=== PATIENT | female | born 1990 | race Two or more races ===

== ENCOUNTER 2021-06-04 06:32 | Inpatient (IN) | payer SELFPAY ==
[~2021-06-04] VITALS: Ht 154.9 cm; Wt 102.0 kg
[2021-06-04] MEDS ORDERED: ACETAMINOPHEN 325 MG TABLET. PO PRN (06:45)
[2021-06-04] MEDS ORDERED: TERBUTALINE 1 MG/ML VIAL. SQ PRN (06:45)
[2021-06-04] MEDS ORDERED: 0.9 % SODIUM CHLORIDE 10 ML DISP.SYRIN. IV PRN ×2 (06:45→14:30)
[2021-06-04] MEDS ORDERED: LIDOCAINE 1% PF 30 ML VIAL. INJ PRN (06:45)
[2021-06-04] MEDS ORDERED: OXYTOCIN 30 UNIT/500 ML PREMIX 500 ML IV PRN ×3 (06:45→14:30)
[2021-06-04] MEDS ORDERED: BUTORPHANOL 2 MG/ML VIAL. IVP PRN ×2 (06:45)
[2021-06-04 07:07] VITALS: BP 138/93
[2021-06-04] MEDS: IV RINGERS,LACTATED 1000ML 1,000 ML IV SCH ×3 (07:46→12:08)
[2021-06-04] MEDS ORDERED: PENICILLIN G K 5,000,000 UNIT in IV DEXTROSE 5% 100ML 100 ML IV ONE (08:00)
[2021-06-04 08:02] LABS: BASO % 1 % (0-3); EOS # 0.1 x10^3/uL (0.0-0.7); EOS % 2 % (0-3); HEMATOCRIT 38.5 % (36.0-47.0); LYMPH % 37 % (24-48); MEAN CORPUSCULAR HEMOGLOBIN 28 pg (25-35); MEAN CORPUSCULAR HGB CONC 34 g/dL (31-37); MEAN CORPUSCULAR VOLUME 84 fL (79-100); MONO # 0.4 x10^3/uL (0.0-1.1); MONO % 7 % (0-9); NEUT # 2.8 x10^3/uL (1.8-7.7); NEUT % 54 % (31-73); PLATELET COUNT 155 x10^3/uL (140-400); RED BLOOD COUNT 4.59 x10^6/uL (3.50-5.40); RED CELL DISTRIBUTION WIDTH 16.4 % (11.5-14.5); WHITE BLOOD COUNT 5.3 x10^3/uL (4.0-11.0)
--- NOTE | 2021-06-04 09:00 | PDOC1 ---
TRAFFIC SIGN SUPERVISOR H&P Date of Admission: Date of Admission: Jun 04, 2021 at 06:32 History of Present Illness: EDC: 06/21/21 LMP: 09/14/20 31y @ 37.4 by L=17 who presents for scheduled indxn. On her appt on 05/24/21 the pt was noted to have a mild range BP. She reported a mild KWON at the time. PIH labs were sent and returned nml with the exception of her random urine Pr/Cr of 0.8. The following visi the pt was informed that she met the criteria for preeclampsia and that she should undergo indxn soon. At the time the pt no longer had KWON or any s/s of preeclampsia. The pt had an early GTT which was nml. Her next GTT was at 05/07/21 and returned elevated. She then failed the 3 hr GTT which was resulted 05/24/21. She has had no intervention for her GDM dx. PMH: Denies PSH: Denies Meds: PNV, Fe All: NKDA OBHx: TSVD x 2 SH: no tob, no EtOH FH: noncontributory Medications: Meds: Current Medications Medications (Trade) Dose Ordered Sig/Gilbert Route PRN Reason Start Time Stop Time Status Last Admin Dose Admin Ringer's Solution 1,000 ml @ 125 mls/hr Q8H IV 06/04/21 06:45 06/04/21 07:46 Oxytocin 500 ml @ 0 mls/hr CONT PRN IV SEE I/O RECORD 06/04/21 06:45 06/04/21 07:43 Penicillin G Potassium [id number] unit/Dextrose 100 ml @ 100 mls/hr 1X ONCE IV 06/04/21 08:00 06/04/21 08:59 06/04/21 07:46 Allergies: Coded Allergies: No Known Drug Allergies (Unverified , 06/04/21) Physical Exam: PE: GENERAL: No apparent distress. Alert and oriented. HEENT: Head normocephalic, atraumatic. NECK: Supple LUNGS: Clear to auscultation. HEART: RRR, S1, S2 present, pulses intact ABDOMEN: Soft, positive bowel sounds. EXTREMITIES: No cyanosis or edema. NEUROLOGIC: Normal speech, normal tone PSYCHIATRIC: Normal affect, normal mood. SKIN: No ulceration. FHT: 120's +acels/no decels/mLTV [place]: 8 min SVE: 4/75/-3 Labs: Laboratory Tests Test 06/04/21 07:20 06/04/21 08:35 White Blood Count 5.3 x10^3/uL (4.0-11.0) Red Blood Count 4.59 x10^6/uL (3.50-5.40) Hemoglobin 13.0 g/dL (12.0-15.5) Hematocrit 38.5 % (36.0-47.0) Mean Corpuscular Volume 84 fL (79-100) Mean Corpuscular Hemoglobin 28 pg (25-35) Mean Corpuscular Hemoglobin Concent 34 g/dL (31-37) Red Cell Distribution Width 16.4 % (11.5-14.5) H Platelet Count 155 x10^3/uL (140-400) Neutrophils (%) (Auto) 54 % (31-73) Lymphocytes (%) (Auto) 37 % (24-48) Monocytes (%) (Auto) 7 % (0-9) Eosinophils (%) (Auto) 2 % (0-3) Basophils (%) (Auto) 1 % (0-3) Neutrophils # (Auto) 2.8 x10^3/uL (1.8-7.7) Lymphocytes # (Auto) 2.0 x10^3/uL (1.0-4.8) Monocytes # (Auto) 0.4 x10^3/uL (0.0-1.1) Eosinophils # (Auto) 0.1 x10^3/uL (0.0-0.7) Basophils # (Auto) 0.0 x10^3/uL (0.0-0.2) Glucose (Fingerstick) 101 mg/dL (70-99) H Laboratory Tests 06/04/21 07:20 Laboratory Tests 06/04/21 07:20 Assessment & Plan: A/P 31y @ 37.4 by L=17 1.) Indxn on Pit 2.) Preeclampsia - BP's nml to mild, PIH labs wnl, random urine Pr/Cr 0.8, no s/s of preeclampsia 3.) H/o GDM 4.) A1DM - recent dx'ed (05/24/21) 5.) Isaiah NI 6.) Anemia 7.) TDAP given 04/12/21 8.) Covid vaccine given (10/06/20, 10/27/20) 9.) Fetus cat I FHT 10.) GBS pos on PCN SHELLEY MARKS MD Jun 04, 2021 09:00
[2021-06-04] MEDS ORDERED: DOCO100C PO (09:44)
[2021-06-04] MEDS ORDERED: FERR250T PO (09:44)
[2021-06-04] MEDS ORDERED: PREN1TAB58 PO (09:44)
[2021-06-04] MEDS ORDERED: hydrALAZINE 20 MG/ML VIAL. IVP ONE (10:00)
[2021-06-04] MEDS ORDERED: BUPIVACAINE MPF 0.25% 30 ML VIAL. ONE (10:11)
[2021-06-04] MEDS ORDERED: L&D EPIDURAL SYRINGE 50 ML ONE (10:11)
[2021-06-04] MEDS ORDERED: L&D EPIDURAL 50 ML SYRINGE. ONE (10:15)
[2021-06-04] MEDS ORDERED: PENICILLIN G K 2,500,000 UNIT in IV DEXTROSE 5% 50 ML IV SCH (12:00)
[2021-06-04] MEDS ORDERED: SIMETHICONE 80 MG TAB.CHEW PO PRN (14:30)
[2021-06-04] MEDS ORDERED: oxyCODONE/APAP 5/325 1 TAB TABLET PO PRN (14:30)
[2021-06-04] MEDS ORDERED: MMR per PROTOCOL. MC PRN (14:30)
[2021-06-04] MEDS ORDERED: BENZOCAINE 20% TOPICAL AEROSOL SPRAY 57GM CAN. TP PRN (14:30)
[2021-06-04] MEDS ORDERED: PHENYLEPH/MINERAL OIL/PETROLAT RECTAL OINTMENT TUBE. RC PRN (14:30)
[2021-06-04] MEDS ORDERED: DOCUSATE SODIUM 100 MG CAPSULE. PO PRN (14:30)
[2021-06-04] MEDS ORDERED: TDaP (BOOSTRIX) per PROTOCOL. MC PRN (14:30)
[2021-06-04] MEDS ORDERED: MAG HYDROX/ALUMINUM HYD/SIMETH 30 ML ORAL.SUSP PO PRN (14:30)
[2021-06-04] MEDS ORDERED: HYDROCORTISONE 1% TOPICAL OINTMENT 30GM TUBE. TP PRN (14:30)
[2021-06-04] MEDS ORDERED: MAGNESIUM HYDROXIDE 2,400 MG/30 ML ORAL.SUSP. PO PRN (14:30)
[2021-06-04] MEDS ORDERED: diphenhydrAMINE HCL 25 MG CAPSULE PO PRN (14:30)
[2021-06-04] MEDS ORDERED: ZOLPIDEM 5 MG TABLET. PO PRN (14:30)
--- NOTE | 2021-06-04 15:41 | PDOC4 ---
VAGINAL DELIVERY DATE DATE: 06/04/21 TIME: 15:41 TIME Patient delivered a viable female over intact perineum at 1342. Wt 7 lb 14 oz. Apgars 8/9. Placenta delivered spontaneously, intact with 3VC. No lacerations noted. Good hemostasis noted. 20 U of Pit given with IVF. EBL 200 cc. WEIGHT Weight [ ] SHELLEY MARKS MD Jun 04, 2021 15:41
[2021-06-04] MEDS: IBUPROFEN 400 MG TABLET. PO PRN (16:56)
[2021-06-04 19:05] VITALS: BP 140/86
[2021-06-04 23:30] VITALS: BP 132/78
[2021-06-05 04:00] VITALS: BP 136/78
[2021-06-05 07:41] LABS: HEMATOCRIT 36.7 % (36.0-47.0); RED BLOOD COUNT 4.39 x10^6/uL (3.50-5.40); RED CELL DISTRIBUTION WIDTH 16.4 % (11.5-14.5); WHITE BLOOD COUNT 8.4 x10^3/uL (4.0-11.0)
[2021-06-05 08:00] VITALS: BP 136/80
[2021-06-05] MEDS ORDERED: FERROUS SULFATE 325 MG TABLET. PO SCH (08:00)
[2021-06-05] MEDS ORDERED: FLU VACC QUAD 21-22 (6MOS+) PF 0.5 ML SYRINGE. VAX IM ONE ×2 (08:00→10:00)
[2021-06-05] MEDS: PRENATAL MULTIVITAMIN TABLET. PO SCH (08:10)
[2021-06-05] MEDS: IBUPROFEN 400 MG TABLET. PO PRN ×3 (08:10→21:43)
--- NOTE | 2021-06-05 10:44 | PDOC ---
MORTARMAN PROGRESS NOTE Date of Service: DATE: 06/05/21 TIME: 10:43 Subjective: Pt with good pain control. Yoko PO. Voiding. Minimal lochia. Denies KWON, changes in vision, or abd pain Objective: Vital Signs: Vital Signs Date Time Temp Pulse Resp B/P (MAP) Pulse Ox O2 Delivery O2 Flow Rate FiO2 06/04/21 07:07 96 20 138/93 (108) 97 Room Air 06/04/21 19:05 97.9 97.9 Vital Signs Date Time Temp Pulse Resp B/P (MAP) Pulse Ox O2 Delivery O2 Flow Rate FiO2 06/05/21 08:00 97.7 82 20 136/80 (98) 96 Room Air 97.7 Labs: Laboratory Tests Test 06/04/21 11:31 06/04/21 13:27 06/05/21 07:00 06/05/21 08:01 Glucose (Fingerstick) 80 mg/dL (70-99) 75 mg/dL (70-99) 77 mg/dL (70-99) White Blood Count 8.4 x10^3/uL (4.0-11.0) Red Blood Count 4.39 x10^6/uL (3.50-5.40) Hemoglobin 12.0 g/dL (12.0-15.5) Hematocrit 36.7 % (36.0-47.0) Mean Corpuscular Volume 84 fL (79-100) Mean Corpuscular Hemoglobin 27 pg (25-35) Mean Corpuscular Hemoglobin Concent 33 g/dL (31-37) Red Cell Distribution Width 16.4 % (11.5-14.5) H Platelet Count 143 x10^3/uL (140-400) Laboratory Tests 06/05/21 07:00 Laboratory Tests 06/05/21 07:00 Physical Exam: GENERAL: No apparent distress. Alert and oriented. HEENT: Head normocephalic, atraumatic. NECK: Supple LUNGS: Clear to auscultation. HEART: RRR, S1, S2 present, pulses intact ABDOMEN: Soft, positive bowel sounds. EXTREMITIES: No cyanosis or edema. NEUROLOGIC: Normal speech, normal tone PSYCHIATRIC: Normal affect, normal mood. SKIN: No ulceration. FFNT below umb No C/C/E Assessment & Plan: A/P 31y PPD #1 s/p 1.) PP doing well 2.) Preeclampsia not Antoni, BP's nml to mild during labor, a couple of severes not requiring tx, BPs nml to mild since delivery, PIH labs wnl, random urine Pr/Cr 0.8, no s/s of preeclampsia 3.) A1DM - recent dx'ed (05/24/21), fasting FSBS 77 4.) Isaiah NI 5.) Hgb 13.0 -> 12.0 6.) TDAP given 04/12/21 7.) Covid vaccine given (10/06/20, 10/27/20) 8.) Cont PP care SHELLEY MARKS MD Jun 05, 2021 10:44
[2021-06-05 11:40] VITALS: BP 136/73
[2021-06-05] MEDS: ACETAMINOPHEN 325 MG TABLET. PO PRN (14:01)
[2021-06-05 16:30] VITALS: BP 145/90
[2021-06-05 19:30] VITALS: BP 158/97
[2021-06-05 23:45] VITALS: BP 135/80
[2021-06-06] VITALS (19 sets, daily range): BP systolic 129–172; BP diastolic 77–98
[2021-06-06] MEDS: IBUPROFEN 400 MG TABLET. PO PRN ×2 (05:47→14:14)
[2021-06-06] MEDS: PRENATAL MULTIVITAMIN TABLET. PO SCH (09:53)
[2021-06-06] MEDS: ACETAMINOPHEN 325 MG TABLET. PO PRN (09:53)
--- NOTE | 2021-06-06 13:10 | NUR ---
Came into patients room at this time and she stated she had a bad headache and was dizzy. VS taken, BP 149/97, other VSS. BP monitor set to automatically go off every 10 minutes. [employer] phone used to evaluate patient #[phone]. Patient confirmed to this nurse that she had a headache and was dizzy. Told patient that this nurse would call the construction services technician and update her on her BP and her symptoms. 1330-Ericka Odonnell CNM updated on pt. symptoms and VS. CNM stated she would be in to see patient. 1400- CNM at bedside. [employer] phone used by CNM with patient for teaching. PI precautions and risk factors went over with patient by CNM. Stated that she would order labs on the patient and if they were stable she would still get to go home today. Serial BP's restarted at this time. Ibuprofen given to patient per order for headache. 1545- Labs WNL. Orders received for discharge for patient. VSS. 8970- D/c instructions given per order, park interpreter phone used #[phone]- Pt. taken down in wheelchair to vehicle. No questions verbalized at this time.
--- NOTE | 2021-06-06 14:32 | PDOC ---
GEAR CUTTING MACHINE SET UP OPERATOR PROGRESS NOTE Date of Service: DATE: 06/06/21 TIME: 14:24 Subjective: Pt reports KWON, denies visual disturbances, no RUQ pain. Reports dizziness while standing in room - feels better now that she is resting in bed. KWON slightly improved as well. Objective: Objective: FF @ U/2. Scant lochia. No edema. 2+ DTRs, no clonus. Vital Signs: Vital Signs Date Time Temp Pulse Resp B/P (MAP) Pulse Ox O2 Delivery O2 Flow Rate FiO2 06/05/21 08:00 97.7 82 20 136/80 (98) 96 Room Air 97.7 Vital Signs Date Time Temp Pulse Resp B/P (MAP) Pulse Ox O2 Delivery O2 Flow Rate FiO2 06/06/21 09:45 97.4 90 20 149/79 (102) 98 Room Air 97.4 Physical Exam: GENERAL: No apparent distress. Alert and oriented. HEENT: Head normocephalic, atraumatic. NECK: Supple LUNGS: Clear to auscultation. HEART: RRR, S1, S2 present, pulses intact ABDOMEN: Soft, positive bowel sounds. EXTREMITIES: No cyanosis or edema. NEUROLOGIC: Normal speech, normal tone PSYCHIATRIC: Normal affect, normal mood. SKIN: No ulceration. Assessment & Plan: Motrin now for KWON. Labile BP - plan serial BP monitoring. Repeat PIH labs. Reviewed strict PIH precautions and risks for preeclampsia/eclampsia thru 2 weeks PP, instructed to call with KWON, visual disturbances, RUQ pain. Bleeding, mastitis, and PPD v baby blues precautions reviewed. Plan PP f/u 1 week for BP check. Anticipate d/c home pending stable labs, KWON resolved. Pt. v/u of all. A/P 31y PPD #2 s/p 1.) PP doing well 2.) Preeclampsia Labile BP, generally mild range - mild KWON (06/06), repeat PIH labs pending. 3.) A1DM - recent dx'ed (05/24/21), fasting FSBS 77 4.) Isaiah NI 5.) Hgb 13.0 -> 12.0 6.) TDAP given 04/12/21 7.) Covid vaccine given (10/06/20, 10/27/20) LEONEL EDOUARD CNM Jun 06, 2021 14:32
[2021-06-06 14:53] LABS: BASO # 0.1 x10^3/uL (0.0-0.2); BASO % 1 % (0-3); EOS # 0.2 x10^3/uL (0.0-0.7); EOS % 2 % (0-3); HEMATOCRIT 37.1 % (36.0-47.0); HEMOGLOBIN 12.5 g/dL (12.0-15.5); LYMPH # 2.1 x10^3/uL (1.0-4.8); LYMPH % 28 % (24-48); MEAN CORPUSCULAR HEMOGLOBIN 28 pg (25-35); MEAN CORPUSCULAR HGB CONC 34 g/dL (31-37); MEAN CORPUSCULAR VOLUME 84 fL (79-100); MONO # 0.4 x10^3/uL (0.0-1.1); MONO % 5 % (0-9); NEUT % 65 % (31-73); PLATELET COUNT 164 x10^3/uL (140-400); RED BLOOD COUNT 4.42 x10^6/uL (3.50-5.40); RED CELL DISTRIBUTION WIDTH 16.5 % (11.5-14.5); WHITE BLOOD COUNT 7.7 x10^3/uL (4.0-11.0)
[2021-06-06 14:54] LABS: CALCIUM 8.6 mg/dL (8.5-10.1); CREATININE 0.5 mg/dL (0.6-1.0); GFR 144.9; POTASSIUM 4.3 mmol/L (3.5-5.1)
[2021-06-06 15:00] LABS: ALBUMIN 2.2 g/dL (3.4-5.0); ALBUMIN/GLOBULIN RATIO 0.5 (1.0-1.7); TOTAL BILIRUBIN 0.1 mg/dL (0.2-1.0); TOTAL PROTEIN 6.9 g/dL (6.4-8.2); URIC ACID 5.7 mg/dL (2.6-6.0)
--- NOTE | 2021-06-11 17:06 | PATHOLOGY ---
[facility] Accession Number: [id number] . 01 Material submitted: . placenta - CORD AND PLACENTA . 01 Clinical history: . INTRAUTERINE SINGLE GESTATION , GDM, GHTN, PRE ECLAMPSIA . 02 Diagnosis: 502 gram early term placenta of an estimated 37 weeks 4 days gestation with attached membranes and umbilical cord: - Placental weight at approximate 60th percentile for estimated gestational age. - Focally increased subchorionic fibrin deposition with villous entrapment and ischemic degeneration. - Chorangiosis, focal. - Recent retromembranous and retroplacental hemorrhage, focal. (LESLIEM:joe; 06/11/2021) R 06/11/2021 1631 Local . 02 Comment: There is no evidence of an acute chorioamnionitis or villitis. (HONG:joe; 06/11/2021) . 02 Electronically signed: . Ramirez Oropeza MD, Pathologist NPI- [id number] . 01 Gross description: . Fixative: Formalin Labeled: With 2 patient identifiers and no specimen ID, however the requisition designates the specimen as "placenta" Specimen received: A most likely all present, guillaume placenta Trimmed placental weight: 502 g Umbilical cord dimensions: 14.9 cm in length, ranging from 0.9 cm to 1.3 cm in diameter Umbilical cord insertion: Eccentrically, 4.2 cm from the nearest placental edge Number of umbilical vessels: 3 Umbilical cord appearance: White and unremarkable Placenta dimensions: 16.6 x 10.2 x 3.5 cm surface: Blue-romero with the usual arborizing vasculature Maternal surface: Red-brown, smooth and intact without evidence of disruption Cut surfaces: Maroon, spongy and displays 2 gross rubbery lesions (0.7 x 0.7 x 0.5 cm and 2.0 x 1.4 x 1.5 cm) membranes: Insert marginally, are gross, dusky, thin and translucent with a moderate amount of adherent blood clot . Mine Production Engineer sections are submitted as follows: A1: Umbilical cord, represented A2: membranes, represented A3-A4: Smaller lesion, entirely submitted A5: Larger lesion, represented ([place]; 06/07/2021) DKA/DKA 06/07/2021 1614 Local . 02 Pathologist provided ICD-10: O43.893, Z37.0, Z3A.37 . 02 CPT . 283717 Specimen Comment: A courtesy copy of this report has been sent to [phone] Specimen Comment: Report sent to Performed at: 01 [facility] [address] [id number] MD Mac Gilmore MD Phone: [phone] Performed at: 02 [facility] [address] [place], [place] [id number] MD Ramirez Oropeza MD Phone: [phone]
--- NOTE | 2021-06-11 23:52 | DS ---
DATE OF DISCHARGE: 06/06/2021 ADMISSION DIAGNOSES: 1. Intrauterine at 37 weeks and 4 days by last menstrual period equal to a 17-week ultrasound. 2. Preeclampsia. 3. Induction. 4. History of gestational diabetes. 5. A1 diabetes. 6. Varicella nonimmune. 7. Anemia. 8. Status post Tdap. 9. Status post COVID vaccine. 10. Group B Streptococcus positive. DISCHARGE DIAGNOSES: 1. Intrauterine at 37 weeks and 4 days by last menstrual period equal to a 17-week ultrasound. 2. Preeclampsia. 3. Induction. 4. History of gestational diabetes. 5. A1 diabetes. 6. Varicella nonimmune. 7. Anemia. 8. Status post Tdap. 9. Status post COVID vaccine. 10. Group B Streptococcus positive. PROCEDURE: Spontaneous vaginal delivery. BRIEF HOSPITAL COURSE: The patient is a 31-year-old 3, para 2-0-0-2, who presented to Labor and Delivery at 37 weeks and 4 days by LMP equal to a 17-week ultrasound for scheduled induction. On the patient's appointment on 05/24/2021, the patient was noted to have a mild ranged blood pressure. At that time, she was reporting mild headache, but resolved with medication. PIH labs were sent and returned normal with the exception of her protein to creatinine ratio, which returned at 0.8. The patient was informed that she met the criteria for preeclampsia, and since she was beyond 37 weeks, was placed on the schedule for induction. The patient, when she presented for induction, had no signs or symptoms of preeclampsia. Of note, the patient also had an early GTT, which returned normal, but her follow up GTT beyond 24 weeks returned elevated. She had a 3-hour GTT, which was also positive and resulted ____. The patient had no intervention for her new diagnosis of gestational diabetes. When the patient arrived on Labor and Delivery, she was started on penicillin and Pitocin. The patient was not started on magnesium because she was low risk for seizures. The patient ultimately delivered via vaginal delivery. See delivery note for full detail. By day #2, the patient was meeting all discharge criteria and was subsequently discharged home. Of note, the patient's hemoglobin on admission was 13.0 and after delivery was 12.5. Her repeat PIH labs all returned within normal limits. DISCHARGE INSTRUCTIONS: The patient was told not to lift anything greater than 20 pounds, have pelvic rest for [address] while on narcotics. CALL IF: The patient was to call if she had fevers, chills, nausea, vomiting, abdominal pain or any additional questions or concerns. FOLLOWUP APPOINTMENT: The patient was to follow up on 06/14/2021 at 1:00 p.m. for a blood pressure check. DISCHARGE MEDICATIONS: The patient was given a prescription for Motrin 800 mg, 30 pills. KAYODE/ERASMO DR: Kiara TID: [id number]
== END 2021-06-06 17:45 | disposition home or self-care (01) | DRG 807 ==
LOC: 3 SO LND 06:32
PROVIDERS: ADMIT Obstetrics & Gynecology; ATTEND Obstetrics & Gynecology
PROC: 10E0XZZ Delivery of Products of Conception, External Approach (ICD-10-PCS; principal; 2021-06-04)
DX: O99.824 Streptococcus B carrier state complicating childbirth (principal); Z37.0 Single live birth; O24.02 Pre-existing type 1 diabetes mellitus, in childbirth; O14.94 Unspecified pre-eclampsia, complicating childbirth; Z3A.37 37 weeks gestation of pregnancy; E10.8 Type 1 diabetes mellitus with unspecified complications; Z3A.49 Greater than 42 weeks gestation of pregnancy; Z20.822 Contact with and (suspected) exposure to COVID-19; O99.02 Anemia complicating childbirth; D64.9 Anemia, unspecified
CPT/HCPCS: 36415; 80053; 82962; 83615; 84550; 85025; 85027; 86592; 86850; 86900; 86901; 90471; 90686; J2540; J2590; J3010; J7060; J7120; G0378